=== PATIENT | male | born 1955 | race Native Hawaiian/Other Pacific Islander ===

== ENCOUNTER 2017-04-01 10:18 | Outpatient (CLI) | payer OTHER | END 2017-04-01 19:06 | disposition home or self-care (01) | LOC: RAD 10:18 | DX: M25.551 Pain in right hip (principal) ==

== ENCOUNTER 2017-04-14 09:50 | Outpatient (CLI) | payer OTHER | END 2017-04-14 19:04 | disposition home or self-care (01) | LOC: RAD 09:50 | DX: J44.9 Chronic obstructive pulmonary disease, unspecified (principal) ==

== ENCOUNTER 2017-04-21 14:02 | Outpatient (CLI) | payer OTHER | END 2017-04-21 15:30 | disposition home or self-care (01) | LOC: MRI 14:02 | DX: M65.28 Calcific tendinitis, other site (principal) ==

== ENCOUNTER 2018-02-08 09:54 | Outpatient (CLI) | payer OTHER | END 2018-02-08 19:37 | disposition home or self-care (01) | LOC: MRI 09:54 | DX: M54.12 Radiculopathy, cervical region (principal) ==

== ENCOUNTER 2019-02-07 09:30 | Outpatient (CLI) | payer OTHER | END 2019-02-07 23:19 | disposition home or self-care (01) | LOC: MRI 09:30 | DX: M25.511 Pain in right shoulder (principal) ==

== ENCOUNTER 2021-08-19 15:06 | Outpatient (CLI) | payer OTHER | END 2021-08-19 19:18 | disposition home or self-care (01) | LOC: RAD 15:06 | PROVIDERS: ATTEND Nurse Practitioner Family | DX: M25.512 Pain in left shoulder (principal); M25.522 Pain in left elbow ==

== ENCOUNTER 2021-09-16 12:21 | Outpatient (CLI) | payer OTHER | END 2021-09-16 20:11 | disposition home or self-care (01) | LOC: RAD 12:21 | PROVIDERS: ATTEND Physician Assistant | DX: M25.512 Pain in left shoulder (principal) ==

== ENCOUNTER 2021-10-03 14:38 | Outpatient (CLI) | payer OTHER | END 2021-10-03 20:20 | disposition home or self-care (01) | LOC: MRI 14:38 | PROVIDERS: ATTEND Physician Assistant | DX: M75.122 Complete rotator cuff tear or rupture of left shoulder, not specified as traumatic (principal) ==

== ENCOUNTER 2021-11-26 08:04 | Outpatient (CLI) | payer OTHER ==
[~2021-11-26] VITALS: Ht 30.5 cm; Wt 0.0 kg
== END 2021-11-26 19:26 | disposition home or self-care (01) ==
LOC: NM 08:04
PROVIDERS: ATTEND Nurse Practitioner Family
DX: Z95.1 Presence of aortocoronary bypass graft (principal); I25.10 Atherosclerotic heart disease of native coronary artery without angina pectoris; F17.210 Nicotine dependence, cigarettes, uncomplicated
CPT/HCPCS: A9500; J2785

== ENCOUNTER 2021-12-16 09:07 | Outpatient (CLI) | payer OTHER | END 2021-12-16 18:58 | disposition home or self-care (01) | LOC: RAD 09:07 | PROVIDERS: ATTEND Nurse Practitioner Primary Care | DX: M54.59 Other low back pain (principal) ==

== ENCOUNTER 2022-01-15 15:27 | Outpatient (CLI) | payer OTHER | END 2022-01-15 18:58 | disposition home or self-care (01) | LOC: RAD 15:27 | PROVIDERS: ATTEND Nurse Practitioner Family | DX: R07.81 Pleurodynia (principal) ==

== ENCOUNTER 2022-02-04 08:00 | Outpatient (CLI) | payer OTHER | END 2022-02-04 19:01 | disposition home or self-care (01) | LOC: CT 08:00 | PROVIDERS: ATTEND Nurse Practitioner Family | DX: K43.9 Ventral hernia without obstruction or gangrene (principal) | CPT/HCPCS: 36415; 82565; 84520 ==

== ENCOUNTER 2022-08-15 10:09 | Outpatient (CLI) | payer OTHER | END 2022-08-15 19:24 | disposition home or self-care (01) | LOC: RAD 10:09 | PROVIDERS: ATTEND Physician Assistant | DX: M25.512 Pain in left shoulder (principal) ==

== ENCOUNTER 2023-01-14 10:41 | Observation (INO) | payer OTHER ==
[2023-01-14] VITALS (11 sets, daily range): BP systolic 100–159; BP diastolic 53–72; TEMP 98.1–98.6; Ht 175.3 cm; Wt 91.8 kg
[~2023-01-14] VITALS: Ht 175.3 cm; Wt 91.8 kg
[2023-01-14 11:11] LABS: PLATELET COUNT 168 K/uL (142-355)
[2023-01-14] MEDS ORDERED: ELIQUIS5 MG PO (19:05)
[2023-01-14] MEDS ORDERED: SIMV40TA57 (19:05)
[2023-01-14] MEDS ORDERED: METFORMIN HCL500 M1 PO (19:07)
[2023-01-14] MEDS ORDERED: NAPROXEN EC500 MG PO (19:08)
[2023-01-14] MEDS ORDERED: METO50TA27 PO (19:08)
[2023-01-14] MEDS ORDERED: LORATADINE10 MG PO (19:09)
[2023-01-14] MEDS ORDERED: LISINOP/HCTZ1 TA2 PO (19:10)
[2023-01-14] MEDS ORDERED: LISITAB PO (19:22)
[2023-01-15 01:11] LABS: PLATELET COUNT 146 K/uL (142-355)
[2023-01-15 04:00] VITALS: BP 113/66; TEMP 97.9
[2023-01-15 08:00] VITALS: BP 164/75; TEMP 97.7
[2023-01-15 12:00] VITALS: BP 145/71; TEMP 95.8
[2023-01-15 16:00] VITALS: BP 157/79; TEMP 98.2
[2023-01-15 20:00] VITALS: BP 183/80; TEMP 98.7
[2023-01-15 23:58] VITALS: BP 160/73; TEMP 98.5
[2023-01-16 03:39] VITALS: BP 180/80; BP 195/80; TEMP 97.4
[2023-01-16 06:07] LABS: POTASSIUM 3.8 mmol/L (3.6-5.2)
[2023-01-16 08:00] VITALS: BP 177/81; TEMP 97.9
== END 2023-01-16 10:50 | disposition home or self-care (01) ==
LOC: ED 10:41 → MED/SURG 11:57
PROVIDERS: Family Medicine; ADMIT Nurse Practitioner Family; ATTEND Internal Medicine Endocrinology, Diabetes & Metabolism
DX: R07.89 Other chest pain (principal); N17.9 Acute kidney failure, unspecified; I12.9 Hypertensive chronic kidney disease with stage 1 through stage 4 chronic kidney disease, or unspecified chronic kidney disease; E11.22 Type 2 diabetes mellitus with diabetic chronic kidney disease; Z79.84 Long term (current) use of oral hypoglycemic drugs; I25.10 Atherosclerotic heart disease of native coronary artery without angina pectoris; E78.5 Hyperlipidemia, unspecified
CPT/HCPCS: 36415; 80048; 80053; 82570; 82948; 84300; 84484; 84540; 85027; 93005; 96360; 96361; 99221; 99284; G0378